=== PATIENT | female | born 1990 | race Caucasian/White ===

== ENCOUNTER 2018-11-17 09:27 | Emergency (ER) | payer OTHER ==
[~2018-11-17] VITALS: Ht 167.6 cm; Wt 64.0 kg
[2018-11-17 09:34] VITALS: Ht 167.6 cm; Wt 64.0 kg
[2018-11-17 11:43] VITALS: BP 116/59
== END 2018-11-17 12:01 | disposition home or self-care (01) ==
LOC: ED 09:27
DX: S43.401A Unspecified sprain of right shoulder joint, initial encounter (principal); S53.401A Unspecified sprain of right elbow, initial encounter; S63.602A Unspecified sprain of left thumb, initial encounter; S29.011A Strain of muscle and tendon of front wall of thorax, initial encounter; S60.222A Contusion of left hand, initial encounter; V43.52XA Car driver injured in collision with other type car in traffic accident, initial encounter; Y93.I9 Activity, other involving external motion; Y92.413 State road as the place of occurrence of the external cause; Y99.8 Other external cause status
CPT/HCPCS: Q0092